=== PATIENT | female | born 2000 | race Caucasian/White ===

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

== ENCOUNTER 2021-02-15 20:17 | Emergency (ER) | payer BC, MEDICAID ==
[~2021-02-15] VITALS: Ht 160 cm; Wt 77.7 kg
[2021-02-15 20:30] VITALS: BP 122/82
--- NOTE | 2021-02-15 20:33 | NUR ---
TO LOBBY A/W BED AMBULATORY
--- NOTE | 2021-02-15 21:30 | NUR ---
LEFT ARM PAIN, S/P CLEANING, AND THEN CANT MOVE AN HOUR AGO. 7/10 PAIN AND DESCRIBES IT SHARP/SHOOTING. NO OBVIOUS DEFORMITY NOTED. CMS NONINTACT. LIMITED ARM MOVEMENT D/T PAIN. CAP REFILL < 3. RADIAL PULSES PRESENT BUE. VSS. A&OX4. DENIES ANY NUMBNESS OR TINGLING. NO DISCOLORATION NOTED ON AFFECTED EXTREMETIES. DENIES TAKING ANY PAIN MEDS PRIOR TO COMING TO THE ED. STEADY GAIT NOTED. NKDA. PMH: ASTHMA.
[2021-02-15] MEDS ORDERED: NAPROXEN 500 MG TAB PO SCH (22:05)
[2021-02-15] MEDS ORDERED: NAPR-54 PO (22:05)
--- NOTE | 2021-02-15 22:16 | NUR ---
sling size large placed on pt l arm and fastened
[2021-02-15 22:26] VITALS: BP 122/82
== END 2021-02-15 22:26 | disposition home or self-care (01) ==
LOC: MED 20:17
DX: M77.12 Lateral epicondylitis, left elbow (principal)
CPT/HCPCS: 99282

== ENCOUNTER 2021-08-07 20:26 | Emergency (ER) | payer SELFPAY ==
[~2021-08-07] VITALS: Ht 162.6 cm; Wt 79.4 kg
[~2021-08-07 20:26] MED LIST: NAPR-54 PO
[2021-08-07 20:36] VITALS: BP 140/90
--- NOTE | 2021-08-07 20:39 | NUR ---
TO BED AMBULATORY
--- NOTE | 2021-08-07 20:42 | NUR ---
21 yo f bib self with c/c of diarrhea x8 days. 7/10 cramping abd pain. pt states she was in [place] on vacation came back monday and diarrhea started on . denies blood in stool. denies n/v. denies taking medication for diarrhea. reports she is unable to hold her stool in too long. pt placed in gown. abd is soft and flat, bowel sounds active x4 quads, slight tenderness on lower quads. bed locked in lowest position, side railsx2. denies hx, rx and allergies
[2021-08-07 20:56] VITALS: BP 140/90
[2021-08-07] MEDS ORDERED: SULF-59 PO (22:08)
--- NOTE | 2021-08-07 22:11 | NUR ---
PATIENT EXAMINED AND CLEARED DISCHARGE BY DR. SUH. DISCHARGE INSTRUCTIONS AND MEDICAITON ADMINISTRATION PROVIDED BY DR. SUH. RX OF BACTRIM. PT AMBULATORY TO PERSONAL VEHICLE IN STABLE CONDITION.
== END 2021-08-07 22:11 | disposition home or self-care (01) ==
LOC: MED 20:26
DX: R19.7 Diarrhea, unspecified (principal); J45.909 Unspecified asthma, uncomplicated; Z79.899 Other long term (current) drug therapy
CPT/HCPCS: 81025; 99283